=== PATIENT | female | born 1965 | race Caucasian/White ===

== ENCOUNTER 2016-10-08 10:25 | Emergency (ER) | payer OTHER ==
[~2016-10-08] VITALS: Ht 162.6 cm; Wt 85.9 kg
[~2016-10-08 10:25] MED LIST: OMEP20TA86 PO
[2016-10-08 10:47] VITALS: BP 143/93; PULSE 72; RESP 16; O2SAT 96
--- NOTE | 2016-10-08 11:13 | ED.REPORT ---
HPI-General Illness Date of Service Oct 08, 2016 ED Provider: History of Present Illness: 51yo female reports she feels dizziy and dehydrated for 3 days. She is under a lot of school stress with finals, has recently begun using CPAP for sleep apnea. LMP 1 weeks ago. She reports up front that she does not want any laboratory or any other testing as she does not want a big ED bill. No vomiting, diarrhea, CP, SOB, wheezing, polyuria/polydypsia. Unable to get in to see PCP today, amanda came to ED Nursing Notes Stated Complaint: DIZZY,DEHYDRATION Chief Complaint: General Complaint Nursing Notes Reviewed: Yes Allergies: Coded Allergies: Penicillins (Verified Allergy, Unknown, 09/26/15) Scheduled Meclizine (Bonine) 25 Mg Tab.chew 25 MG PO TID Omeprazole (Omeprazole) 20 Mg Tablet.dr 20 MG PO DAILY General Time Seen by MD: 11:12 Chief Complaint Dizziness, Other nausea, feels dehydrated. Hx Obtained From: Patient Arrived By: Walk-in Sudden in Onset?: Yes Onset Occurred: 3 days ago Severity: Current: No pain currently Severity: Maximum: No pain Associated with: Reports: Dizziness, Nausea, Denies: Abdominal pain, Bleeding, Chest pain, Cough, Diaphoresis, Difficulty breathing, Fever, Headache, Neck pain, Off balance, Shortness of breath, Syncope , Vomiting Pertinent Negative: Pt denies other symptoms Recent Healthcare: No recent doctor visit Similar Sx Previous: Yes Past Medical History Past Medical History Anxiety, uses Xanax prn sleep apnea Reports: Hyperlipidemia Past Surgical History Reports: Smoking History Never Smoker Social History Alcohol Use: "Social" Drug Use: Denies drug use Ambulatory Status Independent Review of Systems Full Review of Systems Constitutional: Denies: Chills, Fever Respiratory: Denies: Pleuritic pain, Shortness of breath, Wheezing Cardiovascular: Denies: Chest pain GI: Reports: Nausea, Denies: Abdominal pain, Vomiting Neurologic: Reports: Dizziness, Denies: Change LOC, Headache, Vision change, Weakness Complete sys rev & neg: except as marked. Physical Exam Vital Signs Vital Signs Date Time Temp Pulse Resp B/P Pulse Ox O2 Delivery O2 Flow Rate FiO2 10/08/16 10:47 36.7 72 16 143/93 96 Room Air Initial VS: Reviewed General/Constitutional: Awake, Alert, No acute distress, Well hydrated, Not toxic appearing ENT: Airway patent, Pharynx NL, Tympanic membs NL, Mastoid area NL Neck: Supple, Full range of motion, No adenopathy Respiratory / Chest: Breath sounds NL, Breath sounds = bilat, No respiratory distress Cardiovascular: Heart rate NL, Regular rhythm, Heart sounds NL Abdomen: Soft, Non-tender Neurologic: Oriented X3, Speech NL, No motor deficits, No sensory deficits, CN II - XII intact, Cerebellar NL, Memory NL, Gait NL Psychiatric: Affect NL, Mood NL, Judgment/insight NL, Thought content NL Re-Eval/Medical Decision Med Decision/Clinical Course Pt. has symptoms of nausea and dizziness. I would have preferred some baseline lab testing and EKG, however Pt. refused due to concern of out of pocket costs. I discussed with her how this limits my ability to rule in or out significant medical conditions. She appears quite stable and her clinical exam is unremarkable. Per her preference, will try symptomatic treatment at present with Meclizine. I strongly encouraged follow up if not improving as expected, and to return to ED if anything worsens. She acknowleged understanding of treatment plan. Counseled Regarding: Diagnosis, Need for follow-up, When/why to return to ED Discharge & Departure Primary Impression: Dizziness Additional Impression: Nausea Disposition: Home Patient Instructions: Acute Nausea and Vomiting (ED), Dizziness (ED) Additional Instructions: Rest, follow bland diet for few days, push fluids. Take Meclizine as needed for dizziness or nausea, but it may cause drowsiness. Follow up with your doctor 6/ 7 if not improving. Return to ER if anything worsens. Referrals: Rose Villela MD (PCP) 2-3 days if not improving as expected EDSupervising Provider for APC: Vince Gómez MD, Christopher R PAC Oct 08, 2016 11:12
[2016-10-08] MEDS ORDERED: MECL-114 PO (12:24)
== END 2016-10-08 12:28 | disposition home or self-care (01) ==
LOC: SED 10:25
DX: R42 Dizziness and giddiness (principal); R11.0 Nausea; G47.30 Sleep apnea, unspecified; F41.9 Anxiety disorder, unspecified; E78.5 Hyperlipidemia, unspecified; Z88.0 Allergy status to penicillin